=== PATIENT | female | born 1975 | race Caucasian/White ===

== ENCOUNTER 2021-02-10 09:46 | Emergency (ER) | payer BC ==
[~2021-02-10] VITALS: Ht 167.6 cm; Wt 63.9 kg
[2021-02-10 09:50] VITALS: BP 145/77
[2021-02-10] MEDS ORDERED: acetaminophen 325mg tablet PO ONE (12:05)
== END 2021-02-10 13:04 | disposition home or self-care (01) ==
LOC: ER 09:47
DX: S52.615A Nondisplaced fracture of left ulna styloid process, initial encounter for closed fracture (principal); M25.532 Pain in left wrist; W19.XXXA Unspecified fall, initial encounter; Y93.89 Activity, other specified; Y92.89 Other specified places as the place of occurrence of the external cause; Y99.8 Other external cause status
CPT/HCPCS: 29125; 73090; 73110; 73130; 99284

== ENCOUNTER 2021-03-12 10:45 | Day surgery (SDC) | payer BC ==
[~2021-03-12] VITALS: Ht 165.1 cm; Wt 66.4 kg
[~2021-03-12 10:45] MED LIST: NO HOME MEDS; VANCOMYCIN INJ 1000 MG in NORMAL SALINE 250ml IV.SOLN IV ONE; cefazolin/dext.iso 2gm/100ml IV ONE; famotidine 20mg tablet PO ONE; ringers solution, lacted 1,000 ML IV SCH
[2021-03-12 11:00] VITALS: BP 145/86
[2021-03-12] MEDS ORDERED: famotidine 20mg tablet PO ONE (11:25)
[2021-03-12] MEDS ORDERED: cefazolin/dext.iso 2gm/100ml IV ONE (11:25)
[2021-03-12] MEDS ORDERED: ringers solution, lacted 1,000 ML IV SCH ×2 (11:25→12:30)
[2021-03-12] MEDS ORDERED: VANCOMYCIN INJ 1000 MG in NORMAL SALINE 250ml IV.SOLN IV ONE (11:25)
[2021-03-12 11:52] LABS: BASOPHILS # (AUTO) 0.1 X10'3 (0-0.2); BASOPHILS % (AUTO) 1.3 % (0-1); EOSINOPHILS % (AUTO) 0.5 % (0-6); HEMATOCRIT 39.8 % (35.0-45.0); HEMOGLOBIN 13.4 g/dl (12.0-16.0); LYMPHOCYTES # (AUTO) 1.5 X10'3 (1.1-4.8); LYMPHOCYTES % (AUTO) 25.3 % (21-51); MEAN CORPUSCULAR HEMOGLOBIN 33.3 PG (27.0-31.0); MEAN CORPUSCULAR HGB CONC 33.7 g/dL (33.0-36.5); MEAN CORPUSCULAR VOLUME 98.9 FL (78-98); MEAN PLATELET VOLUME 8.3 FL (7.4-10.4); MONOCYTES # (AUTO) 0.5 X10'3 (0-0.9); MONOCYTES % (AUTO) 9.1 % (2-12); NEUTROPHILS # (AUTO) 3.7 X10'3 (1.8-7.7); NEUTROPHILS % (AUTO) 63.8 % (42-75); PLATELET COUNT 192 X10'3 (140-440); RED BLOOD COUNT 4.03 X10'6 (4.20-5.60); RED CELL DISTRIBUTION WIDTH 13.3 % (11.5-14.5); WHITE BLOOD COUNT 5.8 X10'3 (4.5-11.0)
[2021-03-12 12:05] LABS: ALBUMIN 4.1 G/DL (3.4-5.0); ALBUMIN/GLOBULIN RATIO 1.2 (1.1-1.5); ALKALINE PHOSPHATASE 81 IU/L (46-116); BLOOD UREA NITROGEN 8 MG/DL (7-18); CALCIUM 8.9 MG/DL (8.5-10.1); CHLORIDE 101 MMOL/L (99-107); PRE OP ALT 27 U/L (30-65); PRE OP ANION GAP 12 (8-16); PRE OP AST 20 U/L (10-37); PRE OP BILIRUB, TOTAL 1.2 MG/DL (0.0-1.0); PRE OP GLUCOSE 104 MG/DL (70-104); PRE OP POTASSIUM 4.1 MMOL/L (3.4-5.1); PRE OP SODIUM 137 MMOL/L (135-145); TOTAL PROTEIN 7.5 G/DL (6.4-8.2); eGFR > 90 ML/MIN
[2021-03-12] MEDS ORDERED: hydrALAZINE 20mg/ml inj. IV PRN (12:30)
[2021-03-12] MEDS ORDERED: ondansetron/PF 4mg/2ml inj IV PRN (12:30)
[2021-03-12] MEDS ORDERED: fentaNYL/PF 50MCG/1 ML 2ML syringe IV PRN ×2 (12:30)
[2021-03-12] MEDS ORDERED: morphine 4 MG/ML inj SYRINge IV PRN (12:30)
[2021-03-12] MEDS ORDERED: morphine 2 MG/ML inj. syringe IV PRN (12:30)
[2021-03-12] MEDS ORDERED: labetalol 20mg/4ml (5mg/ml) syringe IV PRN (12:30)
[2021-03-12 12:34] LABS: PREOP HCG, QL SERUM NEGATIVE (NEGATIVE)
[2021-03-12] MEDS ORDERED: propofol inj 20 ML IV ONE (12:43)
[2021-03-12] MEDS ORDERED: ROPIVAcaine 0.5% (5mg/ml) 30ml vial ONE ×2 (12:43)
[2021-03-12] MEDS ORDERED: ondansetron/PF 4mg/2ml inj ONE (12:44)
[2021-03-12] MEDS ORDERED: LIDOcaine 2% (20mg/ml) 5ml vial ONE (12:44)
[2021-03-12] MEDS ORDERED: dexamethasone sod phosphate 10mg/ml inj ONE (12:51)
[2021-03-12] MEDS ORDERED: sevoflurane 250ml liquid IH ONE (12:51)
[2021-03-12] MEDS ORDERED: fentaNYL/PF 50MCG/1 ML 2ML syringe ONE (12:53)
[2021-03-12 14:20] VITALS: BP 158/91
--- NOTE | 2021-03-12 14:20 | NUR ---
Received from OR via lenore, accompanied by Anesthesiologist Dr. Tatum and report given by Anesthesiolgist. 20G R. Forearm. Dressing to left wrist CDI.
[2021-03-12 14:30] VITALS: BP 140/80
[2021-03-12 14:40] VITALS: BP 148/110
[2021-03-12 14:50] VITALS: BP 140/75
[2021-03-12 15:00] VITALS: BP 141/73
--- NOTE | 2021-03-12 15:20 | NUR ---
Patient A&Ox4, denies pain. Patine IV removed. Sent home with discharge paperwork with . Dressing CDI.
== END 2021-03-12 15:20 | disposition home or self-care (01) ==
LOC: PAS 10:45
PROVIDERS: ATTEND Orthopaedic Surgery
DX: S52.572A Other intraarticular fracture of lower end of left radius, initial encounter for closed fracture (principal); G89.18 Other acute postprocedural pain; Z87.891 Personal history of nicotine dependence; Z72.89 Other problems related to lifestyle; Z90.710 Acquired absence of both cervix and uterus; Z79.899 Other long term (current) drug therapy; Z20.822 Contact with and (suspected) exposure to COVID-19; W01.0XXA Fall on same level from slipping, tripping and stumbling without subsequent striking against object, initial encounter; Y93.89 Activity, other specified; Y92.89 Other specified places as the place of occurrence of the external cause; Y99.8 Other external cause status
CPT/HCPCS: 25609; 36415; 64415; 64417; 71045; 76942; 80053; 82948; 84703; 85025; 86885; 86900; 86901; 87426; 93005; A6222; C1713; J1100; J2001; J2405; J2704; J3010; J3370; J7120; A4618; A6449; A7000; J2795

== ENCOUNTER 2022-11-25 21:56 | Emergency (ER) | payer BC ==
[~2022-11-25] VITALS: Ht 167.6 cm; Wt 75.0 kg
[~2022-11-25 21:56] MED LIST changes: -VANCOMYCIN INJ 1000 MG in NORMAL SALINE 250ml IV.SOLN IV ONE; -cefazolin/dext.iso 2gm/100ml IV ONE; -famotidine 20mg tablet PO ONE; -ringers solution, lacted 1,000 ML IV SCH
[2022-11-25 22:32] VITALS: BP 106/68
== END 2022-11-25 22:58 | disposition home or self-care (01) ==
LOC: ER 21:57
DX: S09.90XA Unspecified injury of head, initial encounter (principal); Y04.8XXA Assault by other bodily force, initial encounter; Y93.89 Activity, other specified; Y92.89 Other specified places as the place of occurrence of the external cause; Y99.8 Other external cause status; Z79.899 Other long term (current) drug therapy
CPT/HCPCS: 70450; 99284

== ENCOUNTER 2023-10-31 22:33 | Emergency (ER) | payer BC, MEDICAID ==
[~2023-10-31] VITALS: Ht 165.1 cm; Wt 63.1 kg
[2023-10-31 23:53] LABS: ALBUMIN 4.1 G/DL (3.4-5.0); ANION GAP 18 (8-16); BLOOD UREA NITROGEN 13 MG/DL (7-18); CALCIUM 8.5 MG/DL (8.5-10.1); CHLORIDE 101 MMOL/L (99-107); CREATININE 0.65 MG/DL (0.40-0.90); GLUCOSE 92 MG/DL (70-104); PRO BRAIN NATRIURETIC PEPTIDE 37 PG/ML (0-125); SODIUM 141 MMOL/L (135-145); TOTAL CARBON DIOXIDE 21.6 MMOL/L (24-32); eCRCL 93 ML/MIN; eGFR > 90 ML/MIN
[2023-11-01 00:18] VITALS: TEMP 98.3
[2023-11-01 00:21] LABS: BASOPHILS # (AUTO) 0.2 X10'3 (0-0.2); EOSINOPHILS # (AUTO) 0.1 X10'3 (0-0.9); HEMOGLOBIN 15.3 g/dl (12.0-16.0); MEAN CORPUSCULAR HEMOGLOBIN 34.3 PG (27.0-31.0); RED CELL DISTRIBUTION WIDTH 13.6 % (11.5-14.5)
[2023-11-01] MEDS: ondansetron 4mg rapidly disintigrating tab PO ONE (00:47)
[2023-11-01 00:55] LABS: EOSINOPHILS % (AUTO) 1.5 % (0-6); HEMATOCRIT 44.9 % (35.0-45.0); LYMPHOCYTES # (AUTO) 1.5 X10'3 (1.1-4.8); LYMPHOCYTES % (AUTO) 26.1 % (21-51); MEAN CORPUSCULAR HGB CONC 34.1 g/dL (33.0-36.5); MEAN CORPUSCULAR VOLUME 100.7 FL (78-98); MEAN PLATELET VOLUME 9.7 FL (7.4-10.4); MONOCYTES # (AUTO) 0.7 X10'3 (0-0.9); MONOCYTES % (AUTO) 13.2 % (2-12); NEUTROPHILS # (AUTO) 3.2 X10'3 (1.8-7.7); NEUTROPHILS % (AUTO) 56.2 % (42-75); PLATELET COUNT 153 X10'3 (140-440); RED BLOOD COUNT 4.46 X10'6 (4.20-5.60); WHITE BLOOD COUNT 5.7 X10'3 (4.5-11.0)
[2023-11-01 02:40] VITALS: BP 119/85
[2023-11-01] MEDS: ondansetron/PF 4mg/2ml inj IV ONE (04:05)
[2023-11-01] MEDS: normal saline 1000ML IV soln IVB ONE (04:05)
[2023-11-01] MEDS: ipratropium 0.5 MG/2.5ML nebule IH ONE (04:45)
[2023-11-01] MEDS: albuterol 2.5 MG/3 ML nebule NEB ONE (04:45)
[2023-11-01 04:46] VITALS: PULSE 89; RESP 20; O2SAT 94
[2023-11-01 04:56] VITALS: PULSE 89; RESP 20; O2SAT 98
[2023-11-01] MEDS: methylPREDNISolone sod succ 125mg/2ml vial IV ONE (05:05)
[2023-11-01] MEDS: azithromycin 250mg tablet PO ONE (05:06)
[2023-11-01] MEDS: ketorolac trometh. 30mg/ml inj. IV ONE (05:06)
[2023-11-01] MEDS: acetaminophen 325mg tablet PO ONE (05:06)
[2023-11-01] MEDS: guaiFENesin/DM 10ml UD oral syrup PO ONE (05:06)
[2023-11-01 05:20] VITALS: PULSE 75
[2023-11-01] MEDS ORDERED: PROM118S5 PO (05:34)
[2023-11-01] MEDS ORDERED: ALBU8HFA PO (05:34)
[2023-11-01] MEDS ORDERED: PRED20TA PO (05:34)
[2023-11-01] MEDS ORDERED: ONDA4TAB12 PO (05:34)
[2023-11-01] MEDS ORDERED: NAPR-56 PO (05:34)
[2023-11-01] MEDS ORDERED: AZIT-164 PO (05:34)
[2023-11-01 05:53] VITALS: RESP 16; O2SAT 98
[2023-11-01] MEDS ORDERED: pantoprazole 40 MG vial IV SCH (08:00)
== END 2023-11-01 05:54 | disposition home or self-care (01) ==
LOC: ER 22:33
DX: J20.5 Acute bronchitis due to respiratory syncytial virus (principal); Z20.822 Contact with and (suspected) exposure to COVID-19; Z79.899 Other long term (current) drug therapy
CPT/HCPCS: 36415; 71045; 80048; 83880; 84484; 85025; 87502; 87503; 87634; 87811; 93005; 94640; 96361; 96374; 96375; 99285; J1885; J2405; J2930; J7030; 94760